=== PATIENT | male | born 1980 | race Two or more races ===

== ENCOUNTER 2023-06-21 12:09 | Emergency (ER) | payer MEDICAID ==
[~2023-06-21] VITALS: Ht 170.2 cm; Wt 89.7 kg
[2023-06-21 12:20] VITALS: TEMP 98
[2023-06-21 12:25] VITALS: BP 152/83; PULSE 63; RESP 18; O2SAT 97
== END 2023-06-21 15:29 | disposition left against medical advice (07) ==
LOC: ER 12:09
DX: S61.210A Laceration without foreign body of right index finger without damage to nail, initial encounter (principal); Z53.21 Procedure and treatment not carried out due to patient leaving prior to being seen by health care provider; W26.8XXA Contact with other sharp object(s), not elsewhere classified, initial encounter; Y93.89 Activity, other specified; Y92.89 Other specified places as the place of occurrence of the external cause; Y99.8 Other external cause status